=== PATIENT | female | born 1935 | race Caucasian/White ===

== ENCOUNTER → 2017-02-03 | Outpatient (CLI) | payer OTHER, MEDICARE | LOC: BHFA 14:00 | PROVIDERS: ATTEND Internal Medicine Interventional Cardiology | DX: I08.0 Rheumatic disorders of both mitral and aortic valves (principal); I48.91 Unspecified atrial fibrillation ==

== ENCOUNTER 2017-02-09 06:24 | Emergency (ER) | payer OTHER, MEDICARE ==
[2017-02-09 06:40] VITALS: O2SAT 96
--- NOTE | 2017-02-09 07:14 | EDPHY ---
H & P Time Seen by Provider: 02/09/17 06:53 HPI/ROS: CHIEF COMPLAINT: Pressure in the head HISTORY OF PRESENT ILLNESS: 81-year-old woman is on warfarin for bicuspid aortic valve. She was doing well until 1:00 a.m. when she woke up and felt like her head was pounding and head pressure and at. She took 2 aspirin went to bed and then woke up at 5:[address] and felt the same way but now she noted that her left ear had decreased hearing and she felt a little bit of ringing in both ears. Her last INR was 2.3, 1 month ago. She has been having increased stress as her [id number] committed suicide 3 weeks ago. Symptoms mild and almost gone now. Not associated with trouble speaking or any weakness or numbness in extremities. No associated recent trauma. Does not radiate. Not better worse with anything REVIEW OF SYSTEMS: Eye: no change in vision ENT: no sore throat Cardiac: no chest pain or syncope Pulmonary: no cough or SOB Abdomen: no vomiting, diarrhea, abdominal pain Musculoskeletal: No neck pain. Chronic right knee pain and had injections a week ago for osteoarthritis Skin: Slight rash on left forehead and near the left ea, also on chin and lateral to the right eye for the past week. Not itchy or painful, no blisters or vesicles reported. Neuro: HPI Constitutional: no fever : no urinary symptoms A comprehensive 10 point review of systems is otherwise negative aside from elements mentioned in the history of present illness. PAST MEDICAL HISTORY: Bicuspid aortic valve on warfarin, nonobstructive clear disease, seizure disorder on Keppra. Osteoarthritis. Social history: here with spouse General Appearance: Alert and conversant, cooperative. Eyes: No scleral icterus. ENT, Mouth: Normal mucous membranes. Normal tympanic membranes bilaterally. Negative for rash in the ear canal. Respiratory: Normal respiratory effort, breath sounds equal, lungs are clear to auscultation. Cardiovascular: Regular rate and rhythm. Gastrointestinal: Abdomen is soft and non tender. Neurological: Alert and oriented x3. Normally conversant. Face symmetric, normal movement and sensation in all extremities. [id number] normal bilaterally and no pronator drift. She does not have hearing in the left ear. Skin: Patient has slight rash with scab over the left forehead and near the left ear. There is a single 1 mm scab inferior lateral to the right eye. No definite vesicles. Rash is on both sides of the face. Musculoskeletal: No peripheral edema and no joint swelling. Normal range of motion neck. Psychiatric: Not agitated. Emergency Department course/MDM: Noncontrast head CT performed for head symptoms on warfarin. 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 729: Negative head CT per Vanessa. 738: Consult with Rustam Pabon regarding hearing loss; recommends no steroids, no treatment at this time. Follow up on Friday for audio formal hearing test and ENT consultation. Results discussed with the patient at this time. She will decrease her Coumadin over the next 2 days. No treatment for facial rash, as it is not clearly vesicular and it is on both sides of her face, I do not think this is likely to be shingles. I think it is unlikely the patient is having subarachnoid, ischemic or hemorrhagic stroke. Smoking Status: Never smoked Constitutional: Initial Vital Signs Temperature (C) 36.7 C 02/09/17 06:30 Heart Rate 65 02/09/17 06:30 Respiratory Rate 18 02/09/17 06:30 Blood Pressure 159/80 H 02/09/17 06:30 O2 Sat (%) 96 02/09/17 06:30 O2 Delivery Mode Room Air Allergies/Adverse Reactions: No Known Allergies Allergy (Unverified 02/09/17 06:40) Home Medications: Medication Instructions Recorded Aspirin [Aspirin 81mg (*)] 81 mg PO DAILY 12/06/13 Atorvastatin Calcium [Lipitor 10 10 mg PO DAILY@18 12/06/13 mg (*)] [place]-3 Fatty Acids [Fish Oil 1000 1,000 mg PO DAILY 12/06/13 mg (*)] levETIRAcetam [Keppra 500 mg (*)] 500 mg PO BID 12/06/13 Keppra 04/19/16 Metoprolol Tartrate 04/19/16 Warfarin Sodium 04/19/16 Medical Decision Making Differential Diagnosis: Differential for head pressure considered including but not limited to migraine , sinus disease, viral syndrome, subarachnoid, epidural or subdural, hemorrhagic stroke. - Data Points Laboratory Results: Laboratory Results 02/09/17 06:40 02/09/17 06:40 02/09/17 02/09/1702/09/17 06:40 06:40 06:40 WBC 5.40 10^3/uL 10^3/uL (3.80-9.50) RBC 4.31 10^6/uL 10^6/uL (4.18-5.33) Hgb 14.0 g/dL g/dL (12.6-16.3) Hct 41.4 % % (38.0-47.0) MCV 96.1 fL fL (81.5-99.8) MCH 32.5 pg pg (27.9-34.1) MCHC 33.8 g/dL g/dL (32.4-36.7) RDW 13.2 % % (11.5-15.2) Plt Count 228 10^3/uL 10^3/uL (150-400) MPV 10.0 fL fL (8.7-11.7) Neut % (Auto) 49.7 % % (39.3-74.2) Lymph % (Auto) 34.8 % % (15.0-45.0) [place] % (Auto) 12.0 % % (4.5-13.0) Eos % (Auto) 2.2 % % (0.6-7.6) Baso % (Auto) 1.1 % % (0.3-1.7) Nucleat RBC Rel Count 0.0 % % (0.0-0.2) Absolute Neuts (auto) 2.68 10^3/uL 10^3/uL (1.70-6.50) Absolute Lymphs (auto) 1.88 10^3/uL 10^3/uL (1.00-3.00) Absolute Monos (auto) 0.65 10^3/uL 10^3/uL (0.30-0.80) Absolute Eos (auto) 0.12 10^3/uL 10^3/uL (0.03-0.40) Absolute Basos (auto) 0.06 10^3/uL 10^3/uL (0.02-0.10) Absolute Nucleated RBC 0.00 10^3/uL 10^3/uL (0-0.01) Immature Gran % 0.2 % % (0.0-1.1) Immature Gran # 0.01 10^3/uL 10^3/uL (0.00-0.10) PT 34.5 SEC H SEC (12.0-15.0) INR 3.35 H (0.83-1.16) Sodium 140 mEq/L mEq/L (134-144) Potassium 4.3 mEq/L mEq/L (3.5-5.2) Chloride 106 mEq/L mEq/L (97-110) Carbon Dioxide 23 mEq/l mEq/l (22-31) Anion Gap 11 mEq/L mEq/L (8-16) BUN 25 mg/dL H mg/dL (7-23) Creatinine 0.9 mg/dL mg/dL (0.6-1.0) Estimated GFR > 60 Glucose 95 mg/dL mg/dL (70-100) Calcium 9.2 mg/dL mg/dL (8.5-10.4) Departure - Departure Disposition: Home, Routine, Self-Care Clinical Impression: Hearing loss in left ear Qualifiers: Hearing loss type: unspecified Qualified Code(s): H91.92 - Unspecified hearing loss, left ear Condition: Good Instructions: Hearing Loss (ED) Additional Instructions: INR today is 3.35; take only 5 mg of your warfarin tonight and tomorrow night then resume previous dosing. Get it rechecked next week. Followup with Dr. Hale or Cm in ENT office this week on Friday. Referrals: Misael Manzano MD [Primary Care Provider] - As per Instructions Rustam Pabon PA [[facility]ician [facility] Human Resources Manager] - As per Instructions Aubrey Hale MD [Medical Doctor] - 02/18/17
[2017-02-09 07:16] LABS: % IMMATURE GRANULYOCYTES 0.2 % (0.0-1.1); ABSOLUTE IMMATURE GRANULOCYTES 0.01 10^3/uL (0.00-0.10); ADD DIFF? NO; ADD MORPH? NO; ADD SCAN? NO; ATYPICAL LYMPHOCYTE FLAG 40 (0-99); FRAGMENT RBC FLAG 0 (0-99); HEMATOCRIT 41.4 % (38.0-47.0); LEFT SHIFT FLG 0 (0-99); LIPEMIA HEMOLYSIS FLAG 90 (0-99); MEAN CELL HEMOGLOBIN 32.5 pg (27.9-34.1); MEAN CELL HEMOGLOBIN CONCENTR. 33.8 g/dL (32.4-36.7); MEAN CELL VOLUME 96.1 fL (81.5-99.8); PLATELET CLUMPS FLAG 0 (0-99); PLATELET COUNT 228 10^3/uL (150-400); RED BLOOD CELL COUNT 4.31 10^6/uL (4.18-5.33); RED CELL DISTRIBUTION WIDTH 13.2 % (11.5-15.2)
[2017-02-09 07:22] LABS: ANION GAP 11 mEq/L (8-16); CALCIUM 9.2 mg/dL (8.5-10.4); CARBON DIOXIDE 23 mEq/l (22-31); CHLORIDE 106 mEq/L (97-110); CREATININE 0.9 mg/dL (0.6-1.0); GLOMERULAR FILTRATION RATE > 60; GLUCOSE 95 mg/dL (70-100); POTASSIUM 4.3 mEq/L (3.5-5.2); SODIUM 140 mEq/L (134-144)
[2017-02-09 07:25] LABS: INR 3.35 (0.83-1.16); PROTIME(PATIENT) 34.5 SEC (12.0-15.0)
[2017-02-09 08:00] VITALS: BP 135/72; PULSE 70; RESP 16; TEMP 98.4
== END 2017-02-09 07:57 | disposition home or self-care (01) ==
DX: H91.92 Unspecified hearing loss, left ear (principal); Z79.01 Long term (current) use of anticoagulants; Z79.82 Long term (current) use of aspirin

== ENCOUNTER → 2018-08-03 | Outpatient (CLI) | payer OTHER, MEDICARE | LOC: FIMAGING 14:49 | PROVIDERS: ATTEND Internal Medicine | DX: R05 Cough (principal) ==